=== PATIENT | female | born 1955 | race Caucasian/White ===

== ENCOUNTER 2022-01-17 13:23 | Observation (INO) | payer MEDICARE, BC, SELFPAY ==
[2022-01-17] VITALS (10 sets, daily range): BP systolic 110–152; BP diastolic 65–89; PULSE 58–114; RESP 15–20; TEMP 36.1–36.9; O2SAT 96–100; BMI 27.9
--- NOTE | 2022-01-17 13:39 | ECG_ITS ---
Measurements Intervals [place] Rate: 100 P: 75 WI: 148 QRS: 72 QRSD: 84 T: 66 QT: 335 QTc: 433 Interpretive Statements SINUS TACHYCARDIA POSSIBLE RIGHT ATRIAL ENLARGEMENT [0.25mV P-WAVE] POSSIBLE RIGHT VENTRICULAR CONDUCTION DELAY [RSR (QR) IN V1/V2] MINIMAL DIFFUSE ST DEPRESSION [0.025+ mV ST DEPRESSION], CONSIDER ISCHEMIA ABNORMAL ECG NO PREVIOUS ECG AVAILABLE FOR COMPARISON Electronically Signed On 01-17-2022 17:08:49 CDT by Joel Sen M.D.
--- NOTE | 2022-01-17 13:41 | ED.SYNCOPE ---
HPI - Syncope General Chief Complaint: Dizziness Stated Complaint: NOT FEELING RIGHT LIGHT HEADED Source: patient Mode of arrival: ambulatory Limitations: no limitations History of Present Illness HPI narrative: Pt states she feels lighteaded, like she is going to pass out. Pt says it is not dizzy like the room is spinning. Pt says she got sweaty and felt like her heart was racing. took her BP and pulse after she was sitting and Bp was 130 systolic and pulse was in 120's. Pt says it is worse when she stands up and was worse when she stood up after bending over. complaint: felt faint Context: standing up Current symptoms: lightheaded Related Data Home Medications Medication Instructions Recorded Confirmed No Home Medications 01/17/22 01/17/22 Allergies Allergy/AdvReac Type Severity Reaction Status Date / Time No Known Allergies Allergy Mild Unverified 09/11/05 07:36 Review of Systems Review of Systems: All systems reviewed & are unremarkable except as noted in HPI and below (HPI) [facility] Social History Social History Smoking status: Never smoker Exam Const: General: no acute distress Orientation/consciousness: patient oriented x3 HENMT: Head: normal to inspection Eyes: Conjunctivae: conjunctivae normal Pupils: Equal, round and reactive pupils present EOM: EOMs intact bilaterally Neck: Neck: normal visual inspection and no lymphadenopathy Resp: Effort & Inspection: normal respiratory effort Auscultation: clear to auscultation bilaterally Cardio: Rate: tachycardic Rhythm: regular rhythm GI: GI Palp: Yes Soft to palpation Other: non tender Skin: General skin exam: normal color Neuro: General: patient oriented x3, moves all extremities, no meningeal signs, no focal motor deficits and CN's II-XI intact bilaterally Cranial nerves: Yes Nystagmus not present Speech: normal speech Extrem: General: normal to inspection Psych: Appearance: grossly normal Mental Status: mental status grossly normal Affect: normal affect Attitude: cooperative Thought content: Yes Normal thought content present Course Course Emergency Course: discussed with Ashlyn Renner agrees to admission to obs here Vital Signs Vital signs: Vital Signs Temperature 97.6 F 01/17/22 13:30 Pulse Rate 114 H 01/17/22 13:30 Respiratory Rate 20 01/17/22 13:30 Blood Pressure 129/89 01/17/22 13:30 Pulse Oximetry 97 01/17/22 13:30 Temperature 97.6 F 01/17/22 13:30 Pulse Rate 114 H 01/17/22 13:58 Respiratory Rate 20 01/17/22 13:30 Blood Pressure 123/87 01/17/22 13:58 Pulse Oximetry 97 01/17/22 13:30 MDM - Syncope Differential Diagnosis Differential diagnosis: Likely syncope due to orthostatic hypotension, vasovagal syncope, complete atrioventricular block and dehydration Lab Data Result diagrams: 01/17/22 13:55 01/17/22 13:55 Labs: Lab Results 01/17/22 01/17/22 01/17/22 Range/Units 13:52 13:55 13:55 WBC 7.2 (4.8-10.8) K/mm3 RBC 4.45 (4.20-5.40) M/mm3 Hgb 14.0 H (11.7-13.8) g/dL Hct 42.4 H (35.0-42.0) % MCV 95.3 (78.0-102.0) fL MCH 31.5 H (27.0-31.0) pg MCHC 33.0 (32.0-36.0) g/dL RDW 12.0 (11.6-14.4) % Plt Count 320 (150-420) K/mm3 MPV 10.1 (9.2-11.8) fl Immature Gran % (Auto) 0.3 H (0.0-0.0) % Neut % (Auto) 47.1 L (50.0-70.0) % Lymph % (Auto) 43.8 H (18.0-42.0) % Wolfe % (Auto) 7.5 (2.0-11.0) % Eos % (Auto) 0.7 L (1.0-6.0) % Baso % (Auto) 0.6 (0.0-1.0) % Lymph # (Auto) 3.15 (1.10-4.50) K/mm3 Wolfe # (Auto) 0.54 (0.10-0.90) K/mm3 Eos # (Auto) 0.05 (0.02-0.50) K/mm3 Baso # (Auto) 0.04 (0.00-0.10) K/mm3 Abs Immat Gran (auto) 0.02 H (0.00-0.00) K/mm3 Absolute Neuts (auto) 3.4 (1.7-7.2) K/mm3 Absolute Nucleated RBC 0.00 (0.00-0.00) K/mm3 Nucleated RBC % 0.0 (0-0.0) % PT
[2022-01-17 13:54] LABS: Glucose Point of Care 108 mg/dl (65-105)
[2022-01-17] MEDS: SODIUM CHLORIDE 0.9% IV 1,000 ML 999 ML IV CONT (14:00)
[2022-01-17 14:03] LABS: Basophils Absolute Auto 0.04 K/mm3 (0.00-0.10); Basophils Percent Auto 0.6 % (0.0-1.0); Eosinophils Absolute Auto 0.05 K/mm3 (0.02-0.50); Eosinophils Percent Auto 0.7 % (1.0-6.0); Hematocrit 42.4 % (35.0-42.0); Immature Granulocyte Absolute 0.02 K/mm3 (0.00-0.00); Immature Granulocyte Percent A 0.3 % (0.0-0.0); Lymphocytes Absolute Auto 3.15 K/mm3 (1.10-4.50); Lymphocytes Percent Auto 43.8 % (18.0-42.0); Mean Corpuscular Hemoglobin 31.5 pg (27.0-31.0); Mean Corpuscular Volume 95.3 fL (78.0-102.0); Mean Platelet Volume 10.1 fl (9.2-11.8); Monocytes Absolute Auto 0.54 K/mm3 (0.10-0.90); Monocytes Percent Auto 7.5 % (2.0-11.0); Neutrophils Absolute Auto 3.4 K/mm3 (1.7-7.2); Neutrophils Percent Auto 47.1 % (50.0-70.0); Platelet Count Result 320 K/mm3 (150-420); Red Blood Count 4.45 M/mm3 (4.20-5.40); White Blood Count 7.2 K/mm3 (4.8-10.8)
[2022-01-17 14:16] LABS: Partial Thromboplastin Time 27.7 SEC (23.90-30.70)
[2022-01-17 14:21] LABS: Alanine Aminotransferase 30 U/L (14-59); Albumin Level 4.2 g/dL (3.4-5.0); Alkaline Phosphatase 82 U/L (46-116); Anion Gap 11 mmol/L (8-16); Aspartate Amino Transferase 17 U/L (15-37); Bilirubin,Total 0.2 mg/dL (0.00-1.00); Blood Urea Nitrogen 24 mg/dL (7-18); Calcium 9.1 mg/dL (8.5-10.1); Carbon Dioxide 25 mmol/L (21-32); Chloride 102 mmol/L (98-108); Estimated Glomerular Filt Rate 45; Glucose 99 mg/dL (70-99); Osmolality Calculated 290 mOsm/kg (285-295); Potassium 3.9 mmol/L (3.5-5.1); Sodium 138 mmol/L (136-145); Total Protein 7.9 g/dL (6.4-8.2)
[2022-01-17 14:22] LABS: Troponin I 11.4 ng/L (0.00-60.4)
--- NOTE | 2022-01-17 15:10 | ADMGEN ---
This patient, Johnson Cornejo, was admitted to 2nd Floor Room 205-2. Patient/family oriented to hospital policies and general routines including ID bracelet, bed and alarms, visiting hours, pain management, procedures, bathroom and other care routines, personal items, smoking policy, room service/diet, and visiting hours. Information on how to activate the Rapid Response Team has been discussed. Patient/Family are encouraged to report perceived risks to care and to ask questions if they do not understand what they are told or what they should do.
--- NOTE | 2022-01-17 17:44 | PCPTNOTE ---
No Care Plan initiated due to patient being discharged today.
[2022-01-18 03:07] VITALS: PULSE 50
[2022-01-18 04:00] VITALS: BP 121/83; PULSE 65; RESP 16; TEMP 36.9; O2SAT 97
[2022-01-18 05:07] LABS: Basophils Absolute Auto 0.02 K/mm3 (0.00-0.10); Basophils Percent Auto 0.4 % (0.0-1.0); Eosinophils Absolute Auto 0.07 K/mm3 (0.02-0.50); Eosinophils Percent Auto 1.4 % (1.0-6.0); Hematocrit 38.5 % (35.0-42.0); Hemoglobin 12.8 g/dL (11.7-13.8); Immature Granulocyte Absolute 0.01 K/mm3 (0.00-0.00); Immature Granulocyte Percent A 0.2 % (0.0-0.0); Lymphocytes Absolute Auto 2.58 K/mm3 (1.10-4.50); Lymphocytes Percent Auto 50.9 % (18.0-42.0); Mean Corpuscular HGB Conc 33.2 g/dL (32.0-36.0); Mean Corpuscular Volume 96.3 fL (78.0-102.0); Monocytes Absolute Auto 0.38 K/mm3 (0.10-0.90); Monocytes Percent Auto 7.5 % (2.0-11.0); Neutrophils Percent Auto 39.6 % (50.0-70.0); Platelet Count Result 251 K/mm3 (150-420); Red Cell Distribution Width 12.2 % (11.6-14.4); White Blood Count 5.1 K/mm3 (4.8-10.8)
[2022-01-18 05:16] LABS: Anion Gap 6 mmol/L (8-16); Blood Urea Nitrogen 21 mg/dL (7-18); Calcium 9.1 mg/dL (8.5-10.1); Carbon Dioxide 27 mmol/L (21-32); Chloride 106 mmol/L (98-108); Estimated CRCL calculation 50 ml/min; Estimated Glomerular Filt Rate 54; Glucose 96 mg/dL (70-99); Osmolality Calculated 291 mOsm/kg (285-295); Potassium 4.7 mmol/L (3.5-5.1); Sodium 139 mmol/L (136-145)
[2022-01-18 08:00] VITALS: BP 136/77; PULSE 92; RESP 14; TEMP 37.1; O2SAT 100
[2022-01-18 08:20] VITALS: BP 138/79; PULSE 75
--- NOTE | 2022-01-18 08:25 | ECHO_ITS ---
Patient Info Name: Johnson Cornejo Age: 66 years : 1955 Gender: Female Ht: 66 in Wt: 173 lbs BSA: 1.93 m2 HR: 70 bpm BP: 121 / 83 mmHg Technical Quality: Good Exam Date: 01/18/2022 8:13 AM Exam Location: [facility] Patient Status: Outpatient Admit Date: 01/17/2022 Staff Ordering Physician: Ashlyn Gaytan NP Retort Setter: Ifrah Stanley Attending Provider: Vickey Cosme MD Referring Physician: Lukas AGUILAR; Exam Type: CA echo doppler color flow Study Info Indications R94.31 - Abnormal electrocardiogram ECG EKG Complete two-dimensional, color flow and Doppler transthoracic echocardiogram is performed. Strain analysis performed. Summary 1. Complete two-dimensional, color flow and Doppler transthoracic echocardiogram is performed. 2. Left ventricular chamber dimension is normal. 3. Left ventricular systolic function is normal, estimated at 60-65%. 4. The left ventricular diastolic function is grade I diastolic dysfunction. 5. E/e' 8 is minimally elevated. 6. Global longitudinal strain is normal at -18.7%. 7. There is mild aortic valve sclerosis. 8. There is trace mitral valve regurgitation. 9. No pulmonary hypertension, estimated pulmonary arterial systolic pressure is 21 mmHg. 10. There is trace pulmonic regurgitation. Left Ventricle E/e' 8 is minimally elevated. Global longitudinal strain is normal at -18.7%. Left ventricular chamber dimension is normal. Left ventricular systolic function is normal, estimated at 60-65%. The left ventricular diastolic function is grade I diastolic dysfunction. Right Ventricle Right ventricular systolic function is normal and with normal TAPSE 1.9 cm. Right ventricular chamber dimension is normal. Left Atria Left atrial chamber dimension is normal. Right Atria Right atrial chamber dimension is normal. Aortic Valve The aortic valve is trileaflet. There is mild aortic valve sclerosis. There is no aortic valve stenosis. There is no aortic valve regurgitation. Pulmonic Valve There is trace pulmonic regurgitation. Mitral Valve There is no mitral valve stenosis. There is trace mitral valve regurgitation. Tricuspid Valve There is no tricuspid valve regurgitation. No pulmonary hypertension, estimated pulmonary arterial systolic pressure is 21 mmHg. Pericardium/Pleural There is no pericardial effusion. Inferior Vena Cava Normal inferior vena cava with >50% collapse upon inspiration consistent with normal right atrial pressure, 5 mmHg. Aorta The aortic root size at the sinus of Valsalva is normal. Left Ventricular Outflow Tract Name Value Normal LVOT 2D LVOT Diameter 2.0 cm LVOT Doppler LVOT Peak Velocity 102 cm/s LVOT Peak Gradient 4 mmHg LVOT Mean Gradient 3 mmHg LVOT VTI 25 cm LVOT VTI/AV VTI Ratio 1.0 LVOT Stroke Volume 74 ml Mitral Valve Name
[2022-01-18 09:17] VITALS: BP 146/78; PULSE 79
[2022-01-18 09:18] VITALS: BP 123/69; PULSE 96
[2022-01-18 09:51] LABS: Troponin I 9.5 ng/L (0.00-60.4)
--- NOTE | 2022-01-18 10:13 | PM.SD2 ---
Same Day Admit/Disch: HPI History of Present Illness Chief complaint: near syncope/Abd EKG Narrative: Johnson Cornejo is a 66 year old female that presented to our emergency department with complaints of lightheaded and dizziness. Patient has no significant past medical history. She did inform me that her cholesterol was a little elevated her last doctor visit and there was some discussion of starting statins.. According to patient early in the morning yesterday she started to feel lightheaded and dizzy he then went and laid down and later woke up to attempt to make cookies and continue to experience lightheaded and dizziness. Patient does deny any palpitation but notes that her took her pulse which was 120. WBCs hemoglobin 14.0 hematocrit 42.4, platelets 320, sodium 138, potassium 3.9, BUN 24, creatinine 1.20, glucose 99, magnesium 2.0,, troponin 11.4 EKG sinus tach with a heart rate of 100. The patient denies SOB, CP, palpitation, extremity numbness, lightheadedness, dizziness, constipation, diarrhea, chills, or fever. Patient has not experienced any lightheaded or dizziness since admission. Orthostatics blood pressure readings normal, patient denies any dehydration due to diarrhea nausea or decrease in fluid intake. Patient has a follow-up appointment with Dr. Bolaños for further diagnostic tests. Patient agrees that she is ready for discharge [facility] Social History Social History Smoking status: Never smoker Alcohol intake: never Substance use: never Spiritual care concerns: No Same Day Admit/Disch: Med Pre-admit Medications Home Medications Medication Instructions Recorded Confirmed Type aspirin 81 mg PO DAILY #30 cap 01/18/22 Rx Exam Narrative: GENERAL: This is a well-nourished, well-developed patient, in no apparent distress. HEAD: normocephalic, atraumatic. EYES: PERRL. Sclera clear/white. Vision is grossly intact. EARS: External ears normal, auditory canals clear and without drainage, TMs normal without perforation. Hearing grossly intact. NOSE: External nose normal with no obvious nasal discharge, nares without redness, no rhinorrhea. THROAT: Mucous membranes moist, posterior pharynx clear. NECK: Neck supple, non-tender without lymphadenopathy, masses or thyromegaly. CARDIOVASCULAR: Regular rate and rhythm without murmurs, gallops, or rubs. RESPIRATORY: Clear to auscultation. Breath sounds equal bilaterally. No wheezes, rales, or rhonchi. GASTROINTESTINAL: Abdomen soft, non-tender, nondistended. Bowel sounds are active. No hepato-splenomegaly, or palpable masses. No guarding. SKIN: warm, intact with no suspicious lesions or rash, good texture and turgor. NEURO: awake, alert, and oriented to person, place and time. There were no obvious focal neurologic abnormalities. Steady gait EXTREMITIES: Normal range of motion. No edema. No calf tenderness. Negative Homans sign bilaterally. BACK: Nontender without deformity or crepitance. No flank tenderness. DS: Data Data Completed and Pending Labs on day of discharge: Labs from last 24 hours 01/18/22 01/18/22 01/18/22 05:02 05:02 05:02 WBC 5.1 RBC 4.00 L Hgb 12.8 Hct 38.5 MCV 96.3 MCH 32.0 H MCHC 33.2 RDW 12.2 Plt Count 251 MPV 10.0 Immature Gran % (Auto) 0.2 H Neut % (Auto) 39.6 L Lymph % (Auto) 50.9 H [place] % (Auto) 7.5 Eos % (Auto) 1.4 Baso % (Auto) 0.4 Lymph # (Auto) 2.58 [place] # (Auto) 0.38 Eos # (Auto) 0.07 Baso # (Auto) 0.02 Abs Immat Gran (auto) 0.01 H Absolute Neuts (auto) 2.0 Absolute Nucleated RBC 0.00 Nucleated RBC % 0.0 PT INR APTT Sodium 139 Potassium 4.7 Chloride 106 Carbon Dioxide 27 Anion Gap 6 L BUN 21 H Creatinine 1.02 Estim Creat Clear Calc 50 Estimated GFR 54 L Glucose 96 POC Capillary Glucose Calculated Osmolality 291 Calcium 9.1 Magne
--- NOTE | 2022-01-18 12:22 | PC.NURSE ---
Patient is A&Ox4 and agreeable to discharge. Patient is aware of follow up appt with PCP and expecting phone call from roving sizer to schedule appt. Pt has cardiology information and will follow up with them if she does not receive a phone call by the end of the week. Patients spouse was at bedside to provide ride home. Pt is aware of order to take low dose aspirin daily and when to seek immediate care.
--- NOTE | 2022-01-24 10:17 | PC.NURSE ---
Pt states she received and understood the discharge instructions. Pt has no other comments.
== END 2022-01-18 10:45 | disposition home or self-care (01) ==
LOC: CHSED 14:42 → CHS2ND 14:52
PROVIDERS: Nurse Practitioner; Nurse Practitioner Family; Admitting Provider Internal Medicine; Emergency Provider Emergency Medicine; PCP Family Medicine; Visit Provider Internal Medicine
DX: R55 Syncope and collapse (principal); R94.31 Abnormal electrocardiogram [ECG] [EKG]
CPT/HCPCS: 36415; 80048; 80053; 82948; 83735; 84484; 85025; 85610; 85730; 93005; 93306; 96360; 97161; 99285; G0378; J7030

== ENCOUNTER 2024-02-27 08:23 | Emergency (ER) | payer MEDICARE, BC, SELFPAY ==
[2024-02-27] VITALS (35 sets, daily range): BP systolic 102–136; BP diastolic 55–87; PULSE 58–79; RESP 13–21; TEMP 36.7; O2SAT 97–100
--- NOTE | ~2024-02-27 | XR_ITS ---
EXAMINATION: XR chest 1V portable DATE: 02/27/2024 09:19 INDICATION: Intermittent mid chest pain. TECHNIQUE: A single frontal view of the chest was obtained. COMPARISON: Chest 2 views 06/27/2011 FINDINGS: There is no pneumonia, pleural effusion, or pneumothorax. The heart size is normal. Calcifi ed mediastinal lymph nodes are consistent with old granulomatous disease. IMPRESSION: 1. No acute cardiopulmonary disease. Reviewed, dictated and finalized at location A.
--- NOTE | 2024-02-27 08:32 | ECG_ITS ---
SEE SCANNED COPY FOR CONFIRMED REPORT. MTDD
--- NOTE | 2024-02-27 08:45 | ED.CHESTPAIN ---
HPI - Chest Pain General Chief Complaint: Chest Pain Stated Complaint: CHEST PAIN Source: patient Mode of arrival: ambulatory Limitations: no limitations History of Present Illness HPI narrative: 68 old female, nonsmoker with a history of paroxysmal atrial tachycardia, palpitation, status post PDA repair, with a positive stress test in July of 2011 followed by a negative cardiac catheterization at [facility], overnight admission on for dizziness and diffuse ST depression presents to the ER with a 3 hour history of -- left chest discomfort/pain. The discomfort comes on lasts for a minute and resolved spontaneously. No relation to exercise or activity. No radiation of the discomfort/pain. No nausea / vomiting. No lightheadedness. No shortness of breath. On presentation to the ER the patient is hemodynamically stable MD complaint: chest pain Onset (ago): hour(s) ( symptoms started 3 hours ago) Timing of current episode: episodic Prior episodes: No Onset: during rest Pain radiation: none Severity: mild Quality: tightness and aching Relieving factors: nothing Exacerbating factors: nothing Treatment prior to arrival: none Risk Factors Coronary artery disease risk factors: hyperlipidemia and hypertension Related Data On Oral Contraceptives: No Home Medications Medication Instructions Recorded Confirmed calcium carbonate (Haseeb-Mint) 260 mg PO DAILY 02/07/22 02/18/24 cholecalciferol (vitamin D3) 25 25 mcg PO DAILY 02/07/22 02/18/24 mcg (1,000 unit) chewable tablet (VitaJoy Daily D) Allergies Allergy/AdvReac Type Severity Reaction Status Date / Time No Known Allergies Allergy Mild Verified 02/18/24 13:28 Review of Systems Review of Systems: All systems reviewed & are unremarkable except as noted in HPI and below Constitutional: Constitutional: Reports as per HPI and Reports no additional constitutional complaints Eyes: Eyes: Reports as per HPI and Reports no additional eye complaints ENT: Reports system reviewed and no additional complaints, except as documented and Reports as per HPI Cardiovascular: Cardiovascular: Reports as per HPI and Reports no additional cardiovascular complaints Comments: left precordial chest pain /discomfort which comes on every minute and resolves spontaneously Respiratory: Respiratory: Reports as per HPI and Reports no additional respiratory complaints Gastrointestinal: Gastrointestinal: Reports as per HPI and Reports no additional gastrointestinal complaints Genitourinary: Genitourinary: Reports no additional female genitourinary complaints and Reports as per HPI Musculoskeletal: Musculoskeletal: Reports no additional musculoskeletal complaints and Reports as per HPI Integumentary/Breasts: Skin/Breast: Reports system reviewed and no additional complaints, except as docu and Reports as per HPI Neurologic: Reports system reviewed and no additional complaints, except as documented and Reports as per HPI Psychiatric: Psychiatric: Reports no additional psychiatric complaints and Reports as per HPI Endocrine: Endocrine: Reports no additional endocrine complaints and Reports as per HPI Hematologic/Lymphatic: Hematologic/Lymphatic: Reports no additional hematologic/lymphatic complaints and Reports as per HPI Allergic/Immunologic: Allergic/Immunologic: Reports no additional allergic/immunologic complaints and Reports as per HPI [facility] Social History Social History Smoking status: Never smoker Alcohol intake: never Substance use: never Do You Feel Safe in your Home?: Yes Lack of Transportation: No Lack of Food: Never True Current Housing: I Have Housing Concerned About Future Housing: No Difficulty Paying Gas/Electric Bills: No Difficulty Paying for Meds: No Currently Unemployed: No Education: High School Diploma/GED Difficulty w/ Childcare or Family Care: No Spiritual care concerns
[2024-02-27] MEDS: ASPIRIN 81 MG CHEWABLE TABLET 324 MG PO (09:22)
[2024-02-27 09:28] LABS: Basophils Absolute Auto 0.04 K/mm3 (0.00-0.10); Basophils Percent Auto 0.6 % (0.0-1.0); Eosinophils Absolute Auto 0.09 K/mm3 (0.02-0.50); Eosinophils Percent Auto 1.4 % (1.0-6.0); Hematocrit 42.2 % (35.0-42.0); Hemoglobin 13.7 g/dL (11.7-13.8); Immature Granulocyte Absolute 0.02 K/mm3 (0.00-0.00); Immature Granulocyte Percent A 0.3 % (0.0-0.0); Lymphocytes Absolute Auto 2.85 K/mm3 (1.10-4.50); Lymphocytes Percent Auto 44.5 % (18.0-42.0); Mean Corpuscular HGB Conc 32.5 g/dL (32-36); Mean Corpuscular Hemoglobin 30.9 pg (27.0-31.0); Mean Corpuscular Volume 95.3 fL (78.0-102.0); Mean Platelet Volume 9.6 fl (9.2-11.8); Monocytes Absolute Auto 0.46 K/mm3 (0.10-0.90); Monocytes Percent Auto 7.2 % (2.0-11.0); Neutrophils Absolute Auto 2.95 K/mm3 (1.70-7.20); Platelet Count Result 315 K/mm3 (150-420); Red Blood Count 4.43 M/mm3 (4.20-5.40); Red Cell Distribution Width 12.3 % (11.6-14.4); White Blood Count 6.4 K/mm3 (4.8-10.8)
[2024-02-27 09:43] LABS: Partial Thromboplastin Time 26.3 Sec (23.9-30.70); Prothrombin Time 10.9 Seconds (9.50-12.1)
[2024-02-27 09:58] LABS: Lactic Acid Reflex 1.2 mmol/L (0.4-2.0)
[2024-02-27 10:01] LABS: Alanine Aminotransferase 31 U/L (14-59); Albumin Level 3.9 g/dL (3.4-5.0); Alkaline Phosphatase 78 U/L (46-116); Anion Gap 7 mmol/L (4-12); Aspartate Amino Transferase 19 U/L (15-37); Bilirubin,Total 0.4 mg/dL (0.00-1.00); Blood Urea Nitrogen 17 mg/dL (7-18); Calcium 9.7 mg/dL (8.5-10.1); Carbon Dioxide 30 mmol/L (21-32); Chloride 104 mmol/L (98-108); Estimated CRCL calculation 48 ml/min; Estimated Glomerular Filt Rate 54; Glucose 74 mg/dL (70-99); Lipase 45 U/L (16-77); Osmolality Calculated 292 mOsm/kg (285-295); Potassium 4.3 mmol/L (3.5-5.1); Sodium 141 mmol/L (136-145); Thyroid Stimulating Hormone 3.48 uIU/mL (0.36-3.74); Total Protein 7.6 g/dL (6.4-8.2); Troponin I 7.3 ng/L (0.00-60.4)
--- NOTE | 2024-02-27 12:20 | ECG_ITS ---
SEE SCANNED COPY FOR CONFIRMED REPORT. MTDD
[2024-02-27 13:00] LABS: Troponin I 8.1 ng/L (0.00-60.4)
== END 2024-02-27 14:01 | disposition home or self-care (01) ==
PROVIDERS: Emergency Provider Internal Medicine Critical Care Medicine; PCP Family Medicine
DX: R07.9 Chest pain, unspecified (principal); I10 Essential (primary) hypertension; E78.5 Hyperlipidemia, unspecified
CPT/HCPCS: 36415; 71045; 80053; 83605; 83690; 84443; 84484; 85025; 85610; 85730; 93005; 99284; A9270

== ENCOUNTER 2024-02-27 15:08 | Emergency (ER) | payer MEDICARE, BC, SELFPAY ==
[2024-02-27] VITALS (10 sets, daily range): BP systolic 107–143; BP diastolic 69–90; PULSE 64–91; RESP 13–24; O2SAT 94–100
--- NOTE | 2024-02-27 15:09 | ECG_ITS ---
SEE SCANNED COPY FOR CONFIRMED REPORT MTDD
[2024-02-27 15:24] LABS: Basophils Percent Auto 0.4 % (0.2-1.2); Eosinophils Absolute Auto 0.1 K/mm3 (0-0.3); Eosinophils Percent Auto 1.1 % (0-4.4); Hematocrit 42.3 % (37.0-47.0); Hemoglobin 13.9 g/dL (12.0-15.0); Immature Granulocyte Absolute 0.02 K/mm3 (0.00-0.031); Immature Granulocyte Percent A 0.3 % (0-0.5); Lymphocytes Absolute Auto 3.74 K/mm3 (0.9-3.2); Lymphocytes Percent Auto 47.5 % (18.3-44.2); Mean Corpuscular HGB Conc 32.9 g/dl (32-36); Mean Corpuscular Hemoglobin 31.4 pg (26-34); Mean Corpuscular Volume 95.5 fl (80-100); Mean Platelet Volume 9.7 fl (7.4-10.4); Monocytes Absolute Auto 0.4 K/mm3 (0.1-0.6); Monocytes Percent Auto 4.7 % (2.6-8.5); Neutrophils Absolute Auto 3.6 K/mm3 (1.3-6.7); Platelet Count Result 309 k/mm3 (150-375); Red Blood Count 4.43 M/mm3 (4.2-5.4); Red Cell Distribution Width 12.5 % (11.5-14.5); White Blood Count 7.9 K/mm3 (4.5-10.0)
[2024-02-27 15:34] LABS: Alanine Aminotransferase 27 U/L (6-35); Alkaline Phosphatase 73 U/L (38-126); Anion Gap 8 mmol/L (4-12); Aspartate Amino Transferase 28 U/L (14-36); Bilirubin,Total 0.6 mg/dL (0.2-1.3); Blood Urea Nitrogen 16 mg/dL (7-17); Calcium 9.8 mg/dL (8.4-10.2); Carbon Dioxide 25 mmol/L (22-30); Chloride 106 mmol/L (98-107); Estimated CRCL calculation 50 ml/min; Estimated Glomerular Filt Rate 55; Glucose 127 mg/dL (65-110); Lipase 100 U/L (23-300); Potassium 3.8 mmol/L (3.4-5.0); Sodium 139 mmol/L (137-145)
[2024-02-27 15:35] LABS: Prothrombin Time 13.8 Seconds (11.1-14.7)
[2024-02-27 15:36] LABS: Partial Thromboplastin Time 28.7 Seconds (22.3-36.8)
[2024-02-27 15:46] LABS: Troponin I < 0.012 ng/mL (0.000-0.034)
--- NOTE | 2024-02-27 16:29 | ED.CHESTPAIN ---
HPI - Chest Pain General Chief Complaint: Chest Pain Stated Complaint: chest pain Time Seen by Provider: 02/27/24 15:25 Source: patient Mode of arrival: ambulatory Limitations: no limitations History of Present Illness HPI narrative: 68-year-old with history of tachycardia presents to the ER with a complaint of chest pain which started this morning. Patient states that the pain is in midsternal sharp shooting pain appears to be more like spasm lasted for 15-20 seconds. Had multiple such episodes. Was seen in [facility] ER this morning and was discharged home , the patient states that soon after she went home she had another episode of sharp should pain which made a syncopal. States that blood pressure shoots up and heart rate goes up she denies any shortness of breath, nausea. No history of CAD. MD complaint: chest pain Onset (ago): day(s) (1) Timing of current episode: episodic Onset: during rest Pain location: substernal Pain radiation: none Quality: sharp Relieving factors: nothing Exacerbating factors: nothing Context: recent illness Risk Factors Coronary artery disease risk factors: none Related Data Home Medications Medication Instructions Recorded Confirmed calcium carbonate (Haseeb-Mint) 260 mg PO DAILY 02/07/22 02/18/24 cholecalciferol (vitamin D3) 25 25 mcg PO DAILY 02/07/22 02/18/24 mcg (1,000 unit) chewable tablet (VitaJoy Daily D) Allergies Allergy/AdvReac Type Severity Reaction Status Date / Time No Known Allergies Allergy Mild Verified 02/18/24 13:28 Review of Systems Review of Systems: All systems reviewed & are unremarkable except as noted in HPI and below Constitutional: Constitutional: Reports no additional constitutional complaints Eyes: Eyes: Reports no additional eye complaints ENT: Reports system reviewed and no additional complaints, except as documented Cardiovascular: Cardiovascular: Reports as per HPI Respiratory: Respiratory: Reports no additional respiratory complaints Gastrointestinal: Gastrointestinal: Reports no additional gastrointestinal complaints Musculoskeletal: Musculoskeletal: Reports no additional musculoskeletal complaints PMFSH Social History Social History Smoking status: Never smoker Alcohol intake: never Substance use: never Do You Feel Safe in your Home?: Yes Lack of Transportation: No Lack of Food: Never True Current Housing: I Have Housing Concerned About Future Housing: No Difficulty Paying Gas/Electric Bills: No Difficulty Paying for Meds: No Currently Unemployed: No Education: High School Diploma/GED Difficulty w/ Childcare or Family Care: No Spiritual care concerns: No Exam Narrative: GENERAL: Well-appearing, well-nourished, and in no acute distress. HEAD: Normocephalic, atraumatic. EYES: PERRLA and EOMI. ENT: Nares clear, no rhinorrhea or epistaxis. Mucous membranes moist. NECK: Supple. CHEST: Clear to auscultation. No respiratory distress. HEART: Regular rate and rhythm. No murmur heard. Normal peripheral pulses. ABDOMEN: Soft, nontender, nondistended, normal active bowel sounds. EXTREMITIES: Normal range of motion. No edema. SKIN: Warm, dry, no rash. NEURO: No focal deficits. Alert and oriented x3. PSYCH: Normal mood and affect. Course Course Emergency Course: Patient had no further episodes of chest pain while she was in the cage is unremarkable showing her repeat lab work will be a discussed with Dr. Nolen he will follow-up in the office. Patient ambulated in the ER if needed any difficulty Vital Signs Vital signs: Vital Signs Pulse Rate 91 02/27/24 15:18 Respiratory Rate 24 H 02/27/24 15:18 Blood Pressure 129/69 02/27/24 15:18 Pulse Oximetry 98 02/27/24 15:18 Oxygen Delivery Room Air 02/27/24 15:18 Pulse Rate 91 02/27/24 15:18 Respiratory Rate 24 H 02/27/24 15:18 Blood Pressure 129/69 02/27/24 15:18 Puls
--- NOTE | 2024-02-27 16:42 | PC.NURSE ---
ambulated with pt in [place] and denies any dizziness
== END 2024-02-27 16:42 | disposition home or self-care (01) ==
PROVIDERS: Emergency Medicine; Emergency Provider Family Medicine
DX: R07.2 Precordial pain (principal); I45.10 Unspecified right bundle-branch block; R94.31 Abnormal electrocardiogram [ECG] [EKG]
CPT/HCPCS: 36415; 80053; 83690; 84484; 85025; 85610; 85730; 93005; 99284

== ENCOUNTER 2024-03-10 07:42 | Outpatient (CLI) | payer MEDICARE, BC, SELFPAY ==
--- NOTE | 2024-03-10 07:47 | EST_ITS ---
Patient Info Name: Johnson Cornejo Age: 68 years : 1955 Gender: Female Ht: 66 in Wt: 171 lbs BSA: 1.92 m2 HR: 83 bpm BP: 131 / 100 mmHg Heart Rhythm: Sinus Rhythm Technical Quality: Good Exam Date: 03/10/2024 8:49 AM Exam Location: Echo Lab Patient Status: Outpatient Admit Date: 03/10/2024 Staff Ordering Physician: Dane Bolaños DO Attending Provider: Dane Bolaños DO Exam Type: CA stress test treadmill w NM Study Info A treadmill exercise stress test was performed. Summary 1. 1. Abnormal Orlin exercise stress test for ischemic ST changes by ECG criteria. 2. 2. Reduced functional capacity, achieving 6.5 METs of workload. 3. 3. Hypertensive response to exercise. 4. 4. Appropriate HR response to exercise. 5. 5. Appropriate HR recovery at 1 minute post exercise. 6. 6. Nuclear scan to follow and will be reported separately. Please correlate with it. Protocol: Orlin Stress ECG Details Stage: REST Duration (min): 15 min : 4 sec Speed (mph): 0.0 Grade (%): 0 HR (bpm): 84 SBP (mmHg): 131 DBP (mmHg): 100 METS: --- Stage: REST Duration (min): 44 min : 54 sec Speed (mph): 0.0 Grade (%): 0 HR (bpm): 97 SBP (mmHg): 131 DBP (mmHg): 100 METS: --- Stage: STAGE 1 Duration (min): 1 min : 0 sec Speed (mph): 1.7 Grade (%): 10 HR (bpm): 126 SBP (mmHg): 131 DBP (mmHg): 100 METS: --- Stage: STAGE 1 Duration (min): 2 min : 0 sec Speed (mph): 1.7 Grade (%): 10 HR (bpm): 148 SBP (mmHg): 131 DBP (mmHg): 100 METS: --- Stage: STAGE 1 Duration (min): 3 min : 0 sec Speed (mph): 1.7 Grade (%): 10 HR (bpm): 158 SBP (mmHg): 195 DBP (mmHg): 89 METS: --- Stage: STAGE 2 Duration (min): 1 min : 0 sec Speed (mph): 2.5 Grade (%): 12 HR (bpm): 170 SBP (mmHg): 195 DBP (mmHg): 89 METS: --- Stage: STAGE 2 Duration (min): 1 min : 0 sec Speed (mph): 2.5 Grade (%): 12 HR (bpm): 170 SBP (mmHg): 195 DBP (mmHg): 89 METS: --- Stage: RECOVERY Duration (min): 0 min : 59 sec Speed (mph): 0.0 Grade (%): 0 HR (bpm): 150 SBP (mmHg): 195 DBP (mmHg): 89 METS: --- Stage: RECOVERY Duration (min): 1 min : 59 sec Speed (mph): 0.0 Grade (%): 0 HR (bpm): 119 SBP (mmHg): 166 DBP (mmHg): 89 METS: --- Stage: RECOVERY Duration (min): 2 min : 59 sec Speed (mph): 0.0 Grade (%): 0 HR (bpm): 105 SBP (mmHg): 166 DBP (mmHg): 89 METS: --- Stage: RECOVERY Duration (min): 3 min : 59 sec Speed (mph): 0.0 Grade (%): 0 HR (bpm): 95 SBP (mmHg): 189 DBP (mmHg): 74 METS: --- Stage: RECOVERY Duration (min): 4 min : 59 sec Speed (mph): 0.0 Grade (%): 0 HR (bpm): 94 SBP (mmHg): 189 DBP (mmHg): 74 METS: --- Stage: RECOVERY Duration (min): 5 min : 59 sec Speed (mph): 0.0 Grade (%): 0 HR (bpm): 93 SBP (mmHg): 189 DBP (mmHg): 74 METS: ---
--- NOTE | 2024-03-10 13:36 | WPDCARIOSTRE ---
Nuclear Stress Test INDICATIONS Indications: Chest pain PROCEDURE Procedure Performed: Myocardial Perf Spect-Multi Procedure: Patient exercised a standard Orlin protocol and immediately was injected with 31.7 mCi of cardiolyte. Multiple tomographic images were obtained. These are of good quality. There is no perfusion defects with stress imaging. A separate resting images were obtained after patient was injected with 10.5 mCi of cardiolyte. Multiple tomographic images were obtained. These are of good quality. There is no perfusion defects with with rest imaging. CONCLUSION Conclusion: 1. Normal myocardial perfusion imaging with no perfusion defects with stress or rest imaging. 2. No evidence of reversible ischemia. 3. Left ventriculogram demonstrates normal measured ejection fraction of 66% with no wall motion abnormalities. 4. TID score 1.04 is normal.
== END 2024-03-10 07:43 | disposition home or self-care (01) ==
PROVIDERS: Visit Provider Internal Medicine Cardiovascular Disease
DX: R07.9 Chest pain, unspecified (principal)
CPT/HCPCS: 78452; 93017; A9502

== ENCOUNTER 2024-03-13 13:52 | Outpatient (CLI) | payer MEDICARE, BC, SELFPAY ==
--- NOTE | 2024-03-13 13:55 | ECHO_ITS ---
Patient Info Name: Johnson Cornejo Age: 68 years : 1955 Gender: Female Ht: 66 in Wt: 171 lbs BSA: 1.92 m2 HR: 74 bpm BP: 142 / 88 mmHg Technical Quality: Good Exam Date: 03/13/2024 1:50 PM Exam Location: Echo Lab Patient Status: Outpatient Admit Date: 03/13/2024 Staff Ordering Physician: Dane Bolaños DO Mechanics Supervisor: Haris Man RDCS Attending Provider: Dane Bolaños DO Referring Physician: Miky PHELAN; Exam Type: CA echo doppler color flow Study Info Indications R07.9 - Chest pain, unspecified Complete two-dimensional, color flow and Doppler transthoracic echocardiogram is performed. Summary 1. Complete two-dimensional, color flow and Doppler transthoracic echocardiogram is performed. 2. Left ventricular chamber dimension is normal. 3. Left ventricular systolic function is normal, estimated at 60-65%. 4. The left ventricular diastolic function is grade I diastolic dysfunction. 5. E/e' 7 is not elevated. 6. Left atrial chamber dimension is mildly enlarged. 7. There is mild mitral valve regurgitation. 8. There is mild tricuspid valve regurgitation. 9. No pulmonary hypertension, estimated pulmonary arterial systolic pressure is 29 mmHg. 10. There is trace pulmonic regurgitation. Left Ventricle E/e' 7 is not elevated. Left ventricular chamber dimension is normal. Left ventricular systolic function is normal, estimated at 60-65%. The left ventricular diastolic function is grade I diastolic dysfunction. Right Ventricle Right ventricular chamber dimension is normal. Right ventricular systolic function is normal. Left Atria Left atrial chamber dimension is mildly enlarged. Right Atria Right atrial chamber dimension is normal. Aortic Valve The aortic valve is trileaflet. There is no aortic valve stenosis. There is no aortic valve regurgitation. Pulmonic Valve There is trace pulmonic regurgitation. Mitral Valve There is no mitral valve stenosis. There is mild mitral valve regurgitation. Tricuspid Valve There is mild tricuspid valve regurgitation. No pulmonary hypertension, estimated pulmonary arterial systolic pressure is 29 mmHg. Pericardium/Pleural There is no pericardial effusion. Inferior Vena Cava Normal inferior vena cava with >50% collapse upon inspiration consistent with normal right atrial pressure, 5 mmHg. Aorta The aortic root size at the sinus of Valsalva is normal. Left Ventricular Outflow Tract Name Value Normal LVOT 2D LVOT Diameter 1.9 cm LVOT Doppler LVOT Peak Velocity 88 cm/s LVOT Peak Gradient 3 mmHg LVOT Mean Gradient 2 mmHg LVOT VTI 21 cm LVOT VTI/AV VTI Ratio 0.7 LVOT Stroke Volume 59 ml Pulmonic Valve Name Value Normal PV Doppler PV Peak Velocity 110 cm/s PV Peak Gradient 5 mmH
== END 2024-03-13 13:53 | disposition home or self-care (01) ==
PROVIDERS: Visit Provider Internal Medicine Cardiovascular Disease
DX: I51.89 Other ill-defined heart diseases (principal); I34.0 Nonrheumatic mitral (valve) insufficiency; I36.1 Nonrheumatic tricuspid (valve) insufficiency
CPT/HCPCS: 93306